=== PATIENT | female | born 1955 | race Caucasian/White ===

== ENCOUNTER → 2023-08-06 14:25 | Outpatient (REF) | payer MEDICARE, SELFPAY | LOC: HWWDC 14:25 | PROVIDERS: ATTENDING PHYSICIAN Obstetrics & Gynecology Gynecology; FAMILY PHYSICIAN Physician Assistant Medical | DX: Z12.31 Encounter for screening mammogram for malignant neoplasm of breast (principal); Z78.0 Asymptomatic menopausal state | CPT/HCPCS: 77063; 77067; 77080 ==

== ENCOUNTER → 2023-08-08 08:00 | Outpatient (REF) | payer MEDICARE, SELFPAY | LOC: HWRAD 08:00 | PROVIDERS: ATTENDING PHYSICIAN Internal Medicine Gastroenterology; FAMILY PHYSICIAN Internal Medicine | DX: E83.01 Wilson's disease (principal) | CPT/HCPCS: 76700 ==

== ENCOUNTER → 2024-02-29 07:13 | Outpatient (REF) | payer MEDICARE, SELFPAY | LOC: HWRAD 07:13 | PROVIDERS: ATTENDING PHYSICIAN Internal Medicine Gastroenterology; FAMILY PHYSICIAN Nurse Practitioner | DX: E83.01 Wilson's disease (principal) | CPT/HCPCS: 76700 ==

== ENCOUNTER → 2024-05-20 09:20 | Outpatient (REF) | payer MEDICARE, SELFPAY | LOC: HWRAD 09:20 | PROVIDERS: ATTENDING PHYSICIAN Internal Medicine Gastroenterology; FAMILY PHYSICIAN Internal Medicine | DX: K74.60 Unspecified cirrhosis of liver (principal) | CPT/HCPCS: 76700 ==

== ENCOUNTER → 2024-08-26 13:12 | Outpatient (REF) | payer MEDICARE, SELFPAY | LOC: HWWDC 13:12 | PROVIDERS: ATTENDING PHYSICIAN Obstetrics & Gynecology Gynecology; FAMILY PHYSICIAN Internal Medicine | DX: Z12.31 Encounter for screening mammogram for malignant neoplasm of breast (principal) | CPT/HCPCS: 77063; 77067 ==

== ENCOUNTER → 2024-10-08 07:01 | Outpatient (REF) | payer MEDICARE, SELFPAY | LOC: HWRAD 07:01 | PROVIDERS: ATTENDING PHYSICIAN Internal Medicine Gastroenterology; FAMILY PHYSICIAN Nurse Practitioner | DX: E83.01 Wilson's disease (principal) | CPT/HCPCS: 76700 ==

== ENCOUNTER → 2024-11-27 07:09 | Outpatient (REF) | payer MEDICARE, SELFPAY | LOC: HWRAD 07:09 | PROVIDERS: ATTENDING PHYSICIAN Internal Medicine Gastroenterology; FAMILY PHYSICIAN Nurse Practitioner | DX: E83.01 Wilson's disease (principal); R10.32 Left lower quadrant pain; M25.552 Pain in left hip | CPT/HCPCS: 73502; 76700; 93975 ==